=== PATIENT | female | born 1965 | race Caucasian/White ===

== ENCOUNTER 2017-12-27 14:50 | Emergency (ER) | payer MEDICAID ==
[~2017-12-27] VITALS: Ht 167.6 cm; Wt 66.7 kg
[2017-12-27 14:56] VITALS: Ht 167.6 cm; Wt 66.7 kg
[2017-12-27 16:00] VITALS: BP 115/84
== END 2017-12-27 16:00 | disposition home or self-care (01) ==
LOC: ED 14:50
DX: J45.901 Unspecified asthma with (acute) exacerbation (principal); I10 Essential (primary) hypertension; F17.210 Nicotine dependence, cigarettes, uncomplicated
CPT/HCPCS: 99406; J7512; J7613; J7644